=== PATIENT | male | born 1985 | race Caucasian/White ===

== ENCOUNTER → 2020-01-18 | Outpatient (CLI) | payer OTHER ==
--- NOTE | 2020-01-19 07:30 | XR ---
EXAMINATION TYPE: XR foot complete LT DATE OF EXAM: 01/18/2020 COMPARISON: NONE HISTORY: Pain TECHNIQUE: Three views are submitted. FINDINGS: No erosive changes.. Hypertrophic arthropathy of the first MTP. Lucency overlying the distal phalanx the first digit. IMPRESSION: 1. Findings suspicious for hairline fracture distal phalanx first digit correlate with point tenderne ss..
--- NOTE | 2020-01-19 07:36 | XR ---
EXAMINATION TYPE: XR thoracic spine complete DATE OF EXAM: 01/18/2020 COMPARISON: NONE HISTORY: Pain TECHNIQUE: 3 views submitted FINDINGS: Alignment is anatomic. There is no compression deformities. Hypertrophic and degenerative changes of the spine. IMPRESSION: 1. Multilevel hypertrophic and degenerative changes spine. Correlate with MRI as clinically warranted
== END | disposition home or self-care (01) ==
LOC: RADXRYALE 16:10
PROVIDERS: ATTEND Physician Assistant Medical
DX: M47.814 Spondylosis without myelopathy or radiculopathy, thoracic region (principal); M79.672 Pain in left foot; S97.82XA Crushing injury of left foot, initial encounter
CPT/HCPCS: 72072

== ENCOUNTER → 2021-02-22 | Outpatient (CLI) | payer OTHER ==
--- NOTE | 2021-02-22 16:09 | XR ---
EXAMINATION TYPE: XR Hip Complete 2 views RT DATE OF EXAM: 02/22/2021 Comparison: None Clinical History: 35-year-old male [id number] RT SCIATICA Findings: The right hip appears intact. No acute fracture, subluxation, or dislocation. Impression: No acute osseous abnormality seen.
--- NOTE | 2021-02-22 16:09 | XR ---
EXAMINATION TYPE: XR lumbosacral spine 5 views DATE OF EXAM: 02/22/2021 Comparison: None Clinical History: 35-year-old male [id number] RT SCIATICA Findings: Facet arthropathy lower lumbar spine. There are bilateral L5 pars defects with grade 1, nearly grade 2 anterolisthesis at L5-S1. Disc interspaces are maintained and vertebral body heights are preserved. Impression: L5 pars defects with grade 1, nearly grade 2 anterolisthesis at L5-S1. Some facet arthropathy in the lower lumbar spine.
== END | disposition home or self-care (01) ==
LOC: RADXRYALE 15:44
PROVIDERS: ATTEND Family Medicine
DX: M43.17 Spondylolisthesis, lumbosacral region (principal); M46.96 Unspecified inflammatory spondylopathy, lumbar region
CPT/HCPCS: 72110; 73502

== ENCOUNTER → 2021-03-12 | Outpatient (CLI) | payer OTHER ==
--- NOTE | 2021-03-12 16:57 | XR ---
EXAMINATION TYPE: XR orbit detect foreign body DATE OF EXAM: 03/12/2021 COMPARISON: NONE HISTORY: Possible foreign body TECHNIQUE: 3 views FINDINGS: Orbital margins are intact. Maxilla is intact. There is no evidence of a fracture. There is no evidence of radiopaque foreign body. IMPRESSION: No foreign body.
== END | disposition home or self-care (01) ==
LOC: RADXRMAIN 16:21
PROVIDERS: ATTEND Physical Medicine & Rehabilitation
DX: Z18.10 Retained metal fragments, unspecified (principal)
CPT/HCPCS: 70030

== ENCOUNTER → 2022-11-21 | Outpatient (CLI) | payer OTHER ==
--- NOTE | 2022-11-21 15:31 | XR ---
EXAMINATION TYPE: XR ankle complete RT DATE OF EXAM: 11/21/2022 COMPARISON: NONE HISTORY: 37-year-old male anterior lateral pain, rolling injuries. [id number] TECHNIQUE: 3 views FINDINGS: There is mild degenerative spurring anteriorly and posteriorly at the tibiotalar joint. Sut ure anchors on the anterior aspect of the lateral malleolus likely related to prior ligamentous repai r. Prominent anterior and lateral sided soft tissue swelling is present. Subtalar joint align. No acu te fracture, subluxation, dislocation. Talar dome is intact. Ankle mortise remains congruent. Small d elineation to the Achilles tendon. IMPRESSION: Prominent soft tissue swelling especially anteriorly and laterally. Suture anchors at the lateral mal leolus likely relating to prior ligamentous repair. There seems to be mild early degenerative spurrin g at the tibiotalar joint. No acute osseous abnormality seen.
== END | disposition home or self-care (01) ==
LOC: RADXRYALE 14:56
PROVIDERS: ATTEND Physician Assistant
DX: M25.571 Pain in right ankle and joints of right foot (principal)

== ENCOUNTER → 2024-07-02 | Outpatient (CLI) | payer OTHER ==
--- NOTE | 2024-07-02 09:35 | XR ---
EXAMINATION TYPE: XR knee complete LT DATE OF EXAM: 07/02/2024 9:27 AM COMPARISON: None CLINICAL INDICATION: Male, 39 years old with history of [id number] LT KNEE PAIN; [facility], pain TECHNIQUE: XR knee complete LT 3 views submitted. FINDINGS: The patella and prepatellar soft tissues are unremarkable. No evidence of any acute osseou s pathology, soft tissue swelling, or joint effusion is noted. Tricompartmental osteophyte formation involving the femoral condyles, tibial plateau and patella. Mild joint space narrowing. A fabella is present. Larger osteophyte near the medial femoral condyle. IMPRESSION: 1. No acute osseous pathology. 2. Mild tricompartmental osteoarthritic changes. [facility], , 07/02/2024 9:32 AM
== END | disposition home or self-care (01) ==
LOC: RADXRYALE 09:03
PROVIDERS: ATTEND Family Medicine
DX: M17.12 Unilateral primary osteoarthritis, left knee (principal)

== ENCOUNTER 2024-09-24 09:36 | Day surgery (SDC) | payer OTHER ==
[2024-09-24] MEDS ORDERED: SCOPOLAMINE 1 MG/72 HR PATCH TRANSDERM ONE (10:06)
[2024-09-24] MEDS: IV FLUID CONTINUATION 1,000 ML IV ONE ×2 (10:11→14:11)
[2024-09-24 10:26] VITALS: RESP 16
[2024-09-24] MEDS: ACETAMINOPHEN TAB 500 MG TAB PO PRN (10:33)
[2024-09-24] MEDS: LACTATED RINGERS 1,000 ML IV SCH (10:36)
[2024-09-24] MEDS: DEXAMETHASONE SOD PHOSPHATE 4 MG/ML 1 ML VIAL IV ONE (10:55)
[2024-09-24] MEDS: ONDANSETRON 4 MG/2 ML VIAL IVP ONE (10:55)
[2024-09-24] MEDS: MIDAZOLAM 2 MG/2 ML VIAL IV PRN (11:13)
[2024-09-24] MEDS: fentaNYL (PF) 50 MCG/ML 2 ML AMP IVP STA (11:13)
[2024-09-24] MEDS: HEPARIN SODIUM,PORCINE 5,000 UNIT/ML 1 ML VIAL SQ PRN (11:22)
[2024-09-24] MEDS ORDERED: SODIUM CHLORIDE 0.9% (PF) 10 ML VIAL ONE (12:06)
[2024-09-24] MEDS ORDERED: LIDOCAINE 1% INJ 10MG/ML (20 ML MDV) ONE (12:06)
[2024-09-24] MEDS ORDERED: fentaNYL (PF) 50 MCG/ML 2 ML AMP ONE (12:06)
[2024-09-24] MEDS ORDERED: GLYCOPYRROLATE 0.2 MG/ML 2 ML VIAL ONE (12:06)
[2024-09-24] MEDS ORDERED: DEXAMETHASONE SOD PHOSPHATE 4 MG/ML 1 ML VIAL ONE (12:06)
[2024-09-24] MEDS ORDERED: KETOROLAC 15 MG/ML 1 ML VIAL ONE (12:06)
[2024-09-24] MEDS ORDERED: NEOSTIGMINE 1 MG/ML 10 ML VIAL ONE (12:06)
[2024-09-24] MEDS ORDERED: ROCURONIUM 10 MG/ML (5 ML VIAL) IV ONE (12:06)
[2024-09-24] MEDS ORDERED: MIDAZOLAM 2 MG/2 ML VIAL ONE (12:06)
[2024-09-24] MEDS ORDERED: SUCCINYLCHOLINE CHLORIDE 200 MG/10 ML VIAL IV ONE (12:06)
[2024-09-24] MEDS ORDERED: PROPOFOL 10 MG/ML 20 ML VIAL IV ONE (12:06)
[2024-09-24] MEDS ORDERED: ROPIVACAINE 5 MG/ML 30 ML VIAL ONE (12:06)
[2024-09-24] MEDS: ceFAZolin 3 GM in SODIUM CHLORIDE 0.9% 100 ML IVPB PRN (12:10)
[2024-09-24] MEDS: BUPIVACAINE (PF) 0.25% 30 ML VIAL SQ ONE ×2 (12:35→13:08)
[2024-09-24 13:59] VITALS: TEMP 97.4
--- NOTE | 2024-09-24 13:59 | P.OP ---
Date of Procedure: 09/24/24 Procedure(s) Performed: PREOPERATIVE DIAGNOSIS: Incarcerated umbilical hernia POSTOPERATIVE DIAGNOSIS: Same PROCEDURE: Open repair incarcerated umbilical hernia with mesh SURGEON: Dr. Pineda ANESTHESIA: General EBL: 10 cc OPERATIVE PROCEDURE DETAILS: The patient was placed in the operating table in the supine position. A left sided periumbilical incision was made using the scalpel. The subcutaneous tissues were dissected bluntly and with cautery. The hernia sac was identified. The umbilical attachments to the fascia were divided using electrocautery. The hernia sac was excised. The defect in the fascia measured 2.2 x 1.2 cm. The fat overlying the fascia was dissected. No additional defects were seen. The preperitoneal space was then dissected using blunt dissection and electrocautery. The 6.4 cm ventral ex mesh was placed beneath the fascia and sutured in place using trans-fascial 0 Ethibond sutures. The defect was closed using interrupted vest over pants 0 Ethibond mattress sutures. The subcutaneous tissues were reapproximated using inverted 2-0 & 3-0 Vicryl sutures. The umbilicus was tacked back down to the fascia using a 2-0 Vicryl suture. The skin was closed using 4-0 Monocryl sutures. Skin glue and sterile dressings were then applied. HERNIA CHARACTERISTICS: Length: 1.2 cm Width: 2.2 cm Type: Umbilical TYPE OF MESH USED: Ventralex 6.4 cm LOCATION OF MESH: Sublay, extraperitoneal FIXATION: 0 Ethibond PREOPERATIVE DISCUSSION ON SMOKING CESSASTION: Yes PREOPERATIVE DISCUSSION ON MORBID OBESITY: Yes PREOPERATIVE DISCUSSION ON APPROPRIATE USE OF NARCOTIC USE: Yes PREOPERATIVE EDUCATION: Multi Modal, Smoking Cessation and Weight Loss with BMI over 35. DISPOSITION: Stable to recovery room
[2024-09-24] MEDS: HYDROmorphone 0.5 MG/0.5 ML SYRINGE IVP PRN (14:07)
--- NOTE | 2024-09-24 14:34 | P.ANPRN ---
Procedure Note - Anesthesia - Nerve Block Performed Bilateral Rectus Abdominis Single Time Out Performed: Yes ([id number]) Date of Procedure: 09/24/24 Procedure Start Time: 11:14 Procedure Stop Time: 11:19 Location of Patient: PreOp Indication: Acute Post-Operative Pain, Requested by Surgeon Specifically requested for management of pain by DrRocio: Med Pineda Sedation Type: Sedate with meaningful contact maintained Preparation: Sterile Prep Position: Supine Catheter: None Needle Types: Pajunk Needle Gauge: 21 Ultrasound used to visualize needle placement: Yes Ultrasound used to observe medication spread: Yes Injectate: 0.5% Ropivacaine (see comment for volume) (15cc+10cc nacl pf+decadron 4mg each side) Blood Aspirated: No Pain Paresthesia on Injection Noted: No Resistance on Injection: Normal Image Stored and Saved: Yes Events: Uneventful and Well Tolerated
[2024-09-24 15:01] VITALS: BP 122/73; PULSE 89
== END 2024-09-24 15:13 | disposition home or self-care (01) ==
LOC: OR 09:36
PROVIDERS: ATTEND Surgery
DX: K42.0 Umbilical hernia with obstruction, without gangrene (principal); G89.18 Other acute postprocedural pain; Z79.899 Other long term (current) drug therapy
CPT/HCPCS: 49592; 64488; C1781; J2250; J0330; J1644; J1100; J2710; J0690; J2405; J2003; J3010; J2795; J1885; J2704; J1171; J0665; J1596